=== PATIENT | female | born 1950 | race Caucasian/White ===

== ENCOUNTER 2016-07-27 07:00 | Day surgery (SDC) | payer MEDICARE, OTHER ==
[~2016-07-27] VITALS: Ht 167.6 cm; Wt 61.8 kg
[~2016-07-27 07:00] MED LIST: CHOL500011 PO; NIACINAMIDE PO
[2016-07-27] MEDS ORDERED: EPHEDrine/NS 5 mg/mL 5 mL Syringe ONE (07:01)
[2016-07-27] MEDS ORDERED: fentaNYL-PF 50 mCg/mL 2 mL Inj ONE (07:01)
[2016-07-27] MEDS ORDERED: Ondansetron 2 mg/mL 2 mL Inj ONE (07:01)
[2016-07-27] MEDS ORDERED: Propofol 10,000 mCg/mL 20 mL Inj ONE (07:01)
[2016-07-27] MEDS: Lactated Ringer's 1,000 ML IV SCH ×3 (07:11→09:06)
[2016-07-27 07:15] VITALS: BP 113/71; PULSE 65; RESP 12; O2SAT 98
--- NOTE | 2016-07-27 08:01 | PCM.HPANE ---
Patient Data Surgeon Admitting Provider: Attending Provider:Curtis Montenegro DPM Primary Care Physician:Wilbur Solis MD Other Provider:Spencer Nieves Anesthesia Reason for Visit Right Foot Hallux Valgus Ht/WT & BMI Height (Feet): 5 Height (Inches): 6 Weight (Kilograms): 61.8 Body Mass Index 21.00 Allergies Coded Allergies: No Known Allergies (Verified , 08/12/14) Past Anesthesia History Anesthesia History: Denies:: Abnormal Airway, Anesthesia Reactions, Difficult Intubation, Fam Anesthesia Reaction, Fam Malignant Hypertherm, Malignant Hyperthermia Diabetes History Hx Diabetes?: No MRSA MRSA: No Medications Hypertension Medication: No Home Meds Incl Beta Karie: No Reported Medications [niacinamide] No Conflict Check1,500 Mg PO DAILY 07/24/16 Cholecalciferol (Vitamin D3) (Vitamin D3)5,000 Unit Tablet5,000 Unit PO DAILY 07/24/16 Discontinued Reported Medications Cholecalciferol (Vitamin D3) (Vitamin D)5,000 Unit Capsule5,000 Unit PO DAILY 09/21/15 Pseudoephedrine HCl (Sudafed 12 Hour)120 Mg Tablet.er120 Mg PO PRN PRN For Congestion 08/13/14 oxyCODONE-Acetaminophen 5-325 mg 1 Each Tablet1 Tab PO Q4H PRN For Pain Ref 0 08/12/14 History History of ENT Problems?: Yes HEENT History: Positive for:: Sinus Problem (recurrent sinusitis- off abx ) Denies:: Abnormal Airway Difficult Intubation Dysphagia Hearing Problem Hx of Heart Problems?: No Cardiovascular History: Denies:: AICD Abdominal Aortic Aneurism Atrial Fibrillation Chest Pain Hypertension Irregular Heartbeat Pacemaker Valvular Heart Disease Hx of Respiratory Problem?: Yes Respiratory History: Positive for:: Cough (from recent sinusitis) Dyspnea Denies:: Asthma COPD Hemoptysis Oxygen Administration Pneumonia Tuberculosis Use of C-PAP Machine (sleep study- inconclusive, no CPAP use) Hx Neurologic Problems?: No Neurological History: Denies:: CVA Dementia Headaches Multiple Sclerosis Parkinson's Disease Seizures TIA Hx of GI Problems?: No Gastrointestinal History: Denies:: Cirrhosis Diverticulitis Gall Bladder Disease Gastroesphageal Reflux Gastrointestinal Bleeding Hepatitis Hiatal Hernia Rectal Bleeding Hx of Problems?: Yes Genitourinary History: Denies:: Kidney Stones Urinary Tract Infection Other Pertinent History: past hx of bladder sling surgery Female Hx: Denies:: Currently Problems with Breasts? Skin History: Denies:: History Skin Disorders? Pressure Ulcers Hx Musculoskeletal Problems?: Yes Musculoskeletal History: Positive for:: Joint Replacement (right shoulder ) Musculoskeletal Trauma (right foot current admission problem) Osteoarthritis Denies:: Back Injury Hx of Psycho/Social Problems?: No Psycho Social History: Denies:: Anxiety Hx Depression Hx Surgeries?: Yes (bladder sling, hyst, hernia, right total shoulder, hammertoes Left) Hx Any Other Health Problems?: Yes Other History: Positive for:: Cancer (hx melanoma, BCC) Denies:: Endocrine Disease Hospitalization Thyroid Disease History Blood Transfusions: Positive for:: Accept Blood Products? Denies:: Blood Transfusions Hx Diabetes: No Hx Alcohol Use: YesAlcoholic Drinks Per Day: one drink dailyHx Substance Use: No Smoking Status: Never Smoker Have You Smoked inLast 12 mo: No Stop/Bang S-Snoring: Do You Snore Loudly: No T-Tired: feel tired, fatigued: No O-Obsered: Observed not breath: No P-Blood Pressure: treated: No B- Body Mass Index > 35 kg/m2: No A- Age over 50: Yes N- Neck Large Circumference: No G- Gender Male: No BLANCA Total Score: 1 Risk Assessment Category Category 1A: Patient has history of documented sleep apnea, and HAS NOT received any narcotic, sedative or anesthesia administration during this stay. Category 1B: Patient has history of documented sleep apnea, and HAS received any narcotic , sedative or anesthesia administration during this stay Category 2: Patient has SUSPECTED Obstructive Sleep Apnea, and HAS received any narcotic , sedative or anesthesia administration during this stay. Category 3: Patient has SUSPECTED Obstructive Sleep Apnea and HAS NOT received narcotic, sedative or anesthesia administration during this stay. Category 4: Outpatient in Procedural Areas with known sleep apnea or who screen positive for High Risk via the STOP/BANG questionnaire. Exam Exam Vital Signs Vital Signs Date Time Temp Pulse Resp B/P Pulse Ox O2 Delivery O2 Flow Rate FiO2 07/27/16 07:15 36.1 65 12 113/71 98 Room Air General Appearance: Alert, Oriented X3, Cooperative, No Acute Distress HEENT/AIRWAY: MP 2 Lungs: Clear to Auscultation Heart: Exam Unremarkable Meds/Labs/Diagnostics Admission Meds Current Medications Lactated Ringer's (Lr) 1,000 ml @ 120 mls/hr Q8H20M IV Last administered on t 07:11; Start 07/27/16 at 05:00; Stop 07/27/16 at 13:19 Plan Impression Patient chart reviewed, patient interviewed and anesthestic plan with risks, benefits, and alternatives discussed, and informed consent obtained. NPO Status: 07/26/161999 ASA Physical Status: ASA2 Mod Systemic Disease Anesthetic Plan: GA Bene/Risks/Altern/Consents: Yes HP Complete Prior to Induction: Yes Jm Owens MD Jul 27, 2016 08:01
[2016-07-27] MEDS: CeFAZolin 2 Gm/50 mL D5W IV Premix IV ONE ×2 (08:50→09:06)
[2016-07-27] MEDS ORDERED: Lactated Ringer's 1,000 ML IV SCH (08:53)
[2016-07-27] MEDS ORDERED: Lactated Ringer's 500 ML IV PRN (08:53)
[2016-07-27] MEDS ORDERED: Dexamethasone 4 mg/mL Inj IVPUSH PRN (08:55)
[2016-07-27] MEDS ORDERED: Phenylephrine 10,000 mCg/mL Inj IVPUSH PRN (08:55)
[2016-07-27] MEDS ORDERED: hydrALAZINE 20 mg/mL Inj IVPUSH PRN (08:55)
[2016-07-27] MEDS ORDERED: fentaNYL-PF 50 mCg/mL 2 mL Inj IVPUSH PRN (08:55)
[2016-07-27] MEDS ORDERED: Atropine 0.4 mg/mL Inj IVPUSH PRN (08:55)
[2016-07-27] MEDS ORDERED: Ondansetron 2 mg/mL 2 mL Inj IVPUSH PRN (08:55)
[2016-07-27] MEDS ORDERED: Labetalol 5 mg/mL 4 mL Inj IV PRN (08:55)
[2016-07-27] MEDS ORDERED: HYDROmorphone 1 mg/mL Inj IVPUSH PRN (08:55)
[2016-07-27] MEDS ORDERED: EPHEDrine Sulfate 50 mg/mL Inj IVPUSH PRN (08:55)
[2016-07-27] MEDS ORDERED: Bupivacaine-MPF 0.5% 30 mL Inj INFILTRATE ONE (09:36)
[2016-07-27] MEDS ORDERED: Lidocaine PF 1% 30 mL Inj INFILTRATE ONE (09:37)
[2016-07-27] MEDS ORDERED: Gentamicin 40 mg/mL 2 mL Inj IRRIGATION ONE (09:37)
[2016-07-27 11:13] VITALS: BP 105/70; PULSE 58; RESP 16; O2SAT 97
--- NOTE | 2016-07-27 11:18 | PCM.PODPO ---
Podiatry Operative Report Date of Service: Jul 27, 2016 Date of Service Jul 27, 2016 Pre Operative Diagnosis #1 hallux abductovalgus deformity right foot #2 rigid hammertoes 2 and 3 right foot #3 flexible hammertoe fourth digit right foot #4 hypertrophic condyle distal phalanx hallux right foot Post Operative Diagnosis Same Procedure #1 Ghotra Henry bunion correction right foot #2 arthrodesis PIPJ second and third toes right foot #3 flexor tenotomy fourth digit right foot #4 condylectomy hallux right foot Surgeon Surgeon: Curtis Montenegro DPM Assistants: None Indication for Procedure Same Findings Same Details of Procedure Patient was placed on the table in the supine position and surgical timeout observed. Upon initiation of intravenous sedation by the anesthesiologist the right forefoot was anesthetized utilizing 19 cc 1% lidocaine plain and 0.5% Marcaine plain in a one-to-one mix. Well-padded pneumatic ankle tourniquet was applied and the foot prepped and draped in usual sterile manner. The foot was exsanguinated utilizing an Esmarch bandage, the cuff was inflated and attention directed to the dorsomedial first metatarsal phalangeal joint where an approximately 4 cm linear incision was made. Dissection proceeded cauterizing superficial vessels and a dorsomedial capsulotomy was performed. Hypertrophic medial eminence of the first metatarsal head was exposed and resected utilizing Instrumentation all bony prominences were remodeled. Attention was then directed to the dorsal medial proximal phalanx. Approximately 2.5 cm dorsomedial linear incision was made overlying the proximal phalanx. This was placed medial to the extensor hallucis longus tendon and deepened via sharp and blunt dissection with care taken to cauterize superficial bleeders. Subperiosteal dissection was performed exposing the dorsum of the phalanx and a long oblique osteotomy with its apex oriented proximal laterally and base distal medially was performed and approximately 2 mm wedge of bone resected. The osteotomy was feathered closed, hallux was in rectus alignment and fixation was achieved utilizing 22.0 cortical screws via lag technique with good distal screw purchase and compression of the osteotomy noted. Small teardrop gap at the osteotomy was filled with crushed autogenous cancellous bone. Attention was then directed to the dorsal lateral aspect of the hallux where a 1.5 cm incision was made just dorsal to a palpable bony prominence. The periosteal tissues were incised and the bony excrescence was exposed via subperiosteal sharp dissection and resected utilizing para instrumentation. At this time all surgical sites were irrigated and capsular and subcutaneous tissues were reapproximated and closed with 4-0 Vicryl and skin with 4-0 Prolene. Attention was then directed to the second proximal interphalangeal joint number approximately 2 cm dorsal incision was made. Incision was deepened to the level of capsule a transverse capsulotomy and tenotomy was performed and the joint exposed. Articular surfaces were resected. Arthrodesis was feathered closed such that there was good bone to bone coaptation and the cut bone surfaces were fenestrated with a 0.035 inch K wire. An attempt was made to perform intraosseous K wire fixation and this was performed with satisfactory stability and compression at the arthrodesis site to the third toe however there was inadequate fixation achieved utilizing this method at the second digit therefore a 0.054 K wire was utilized in the traditional manner inserted into the intermediate phalangeal base exiting the toe then inserted retrogradely to the subchondral plate of the proximal phalangeal base not crossing the first metatarsophalangeal joint. This was noted to provide excellent bone to bone coaptation and stability at the PIPJ arthrodesis site. The sites were copiously irrigated and extensor tendon repaired with 4-0 Vicryl. Skin and subcutaneous tissues repaired with 4-0 Prolene. The K wire was cut bent and capped distally. Attention was directed to the fourth digit. This toe exhibited a flexion contracture which was fully reducible and at the level of the DIPJ a small stab incision with a 67 [place] blade was performed and the long flexor tendon tenotomized. Site was closed with a single 4-0 Prolene simple interrupted sutures. The tourniquet was released normal perfusion returned to all digits, antibiotic ointment dressings and mildly compressive bandage was applied followed by a postoperative cast boot. The patient left the operating suite in apparently satisfactory condition there were no complications. Grafts, Implants: Implants-See Implant Record Complications There were no periprocedural complications identified. Condition Stable Anesthetic Administered: MAC Drains: None Catheters: None Output, Estimated Blood Loss: 3 Blood Admin during surgery: No Surgical Cast or Splint: None Surgical Specimen Removed: No Specimen sent to Pathology: No Post Operative Plan Postop instructions have been reviewed and dispensed, patient will be seen in the outpatient clinic in 5 days Curtis Montenegro DPM Jul 27, 2016 11:18
[2016-07-27] MEDS ORDERED: oxyCODONE-Acetamin 5-325 mg Tablet PO PRN (11:20)
--- NOTE | 2016-07-27 11:29 | PCM.ANEP1 ---
Post Anesthesia Phase 1 PACU Phase 1 Assessment Date of Service: Jul 27, 2016 Vital Signs Vital Signs Date Time Temp Pulse Resp B/P Pulse Ox O2 Delivery O2 Flow Rate FiO2 07/27/16 11:13 36.2 58 16 105/70 97 Room Air 07/27/16 07:15 36.1 65 12 113/71 98 Room Air Anesthetic Administered: MAC Level of Alertness: Awake, talking PORTILLO's with Equal Strength: Yes Pain: No Nausea or Vomiting: No Oxygen Delivery: Room Air Lungs: Normal Air Movement Jm Owens MD Jul 27, 2016 11:29
[2016-07-27 11:46] VITALS: BP 110/62; PULSE 58; RESP 16; O2SAT 98
--- NOTE | 2016-07-27 12:57 | PCM.ANEP2 ---
Post Anesthesia Evaluation ASA/CMS Post Anesthesia VS in Patient's Normal Range?: Yes Resp Stable; Airway Patent?: Yes CV Function & Hydration Stable: Yes Mental Status Recovered?: Yes Pain control Satisfactory?: Yes N/V Control Satisfactory?: Yes Jm Owens MD Jul 27, 2016 12:57
== END 2016-07-27 23:59 | disposition home or self-care (01) ==
LOC: SAS 07:00
PROVIDERS: ATTEND Podiatrist
DX: M20.41 Other hammer toe(s) (acquired), right foot (principal); M20.11 Hallux valgus (acquired), right foot